=== PATIENT | female | born 1955 | race Caucasian/White ===

== ENCOUNTER 2024-08-09 08:43 | Emergency (ER) | payer MEDICARE ==
[~2024-08-09] VITALS: Ht 162.6 cm; Wt 73.5 kg
[2024-08-09 08:53] VITALS: TEMP 97.6
[2024-08-09] MEDS: KETOROLAC TROMETHAMINE 30 MG/ML VIAL IV STA (09:15)
[2024-08-09] MEDS: CYCLOBENZAPRINE HCL 10 MG TAB PO ONE (09:15)
[2024-08-09 09:53] LABS: BASOPHILS # (AUTO) 0.1 (0.0-0.1); BASOPHILS % 0.8 % (0.0-1.0); EOSINOPHILS # (AUTO) 0.4 (0.0-0.4); HEMATOCRIT 38.4 % (34.2-44.1); HEMOGLOBIN 12.5 g/dL (12.0-16.0); LYMPHOCYTES # (AUTO) 1.7 (1.0-3.2); LYMPHOCYTES % 17.2 % (18.0-39.1); MEAN CORPUSCULAR HEMOGLOBIN 29.4 pg (28-32); MEAN CORPUSCULAR HGB CONC 32.6 g/dL (31-35); MEAN CORPUSCULAR VOLUME 90.4 fL (81-99); MONOCYTES # (AUTO) 0.9 (0.2-0.8); MONOCYTES % 8.9 % (4.4-11.3); NEUTROPHILS # (AUTO) 6.9 (2.1-6.9); NEUTROPHILS % 67.8 % (38.7-80.0); PLATELET COUNT 320 x10e3/uL (140-360); RED BLOOD COUNT 4.25 x10e6/uL (3.6-5.1); RED CELL DISTRIBUTION WIDTH 14.8 % (11.7-14.4); WHITE BLOOD COUNT 10.12 x10e3/uL (4.8-10.8)
[2024-08-09 10:03] LABS: INR 0.87; PROTHROMBIN TIME 12.7 seconds (11.9-14.5)
[2024-08-09 10:04] LABS: PARTIAL THROMBOPLASTIN TIME 24.2 seconds (23.8-35.5)
[2024-08-09 10:06] LABS: ALBUMIN 3.8 g/dL (3.5-5.0); ALBUMIN/GLOBULIN RATIO 1.2 (0.8-2.0); ANION GAP 13.3 mmol/L (8-16); BILIRUBIN,TOTAL 0.3 mg/dL (0.2-1.2); CALCIUM 9.2 mg/dL (8.4-10.2); CREATININE, SERUM 0.77 mg/dL (0.57-1.11); POTASSIUM 4.3 mmol/L (3.5-5.1); TOTAL PROTEIN 7.1 g/dL (6.5-8.1)
[2024-08-09 11:01] VITALS: PULSE 62; RESP 16; O2SAT 96
[2024-08-09] MEDS ORDERED: CYCLOBENZAPRINE10 MG PO (11:05)
== END 2024-08-09 11:26 | disposition home or self-care (01) ==
LOC: ER 08:45
DX: M79.651 Pain in right thigh (principal); M54.50 Low back pain, unspecified; E11.9 Type 2 diabetes mellitus without complications; F32.A Depression, unspecified
CPT/HCPCS: 36415; 72131; 73700; 80053; 84550; 85025; 85610; 85730; 99284; J1885